=== PATIENT | male | born 1955 | race Caucasian/White ===

== ENCOUNTER 2018-07-09 08:48 | Day surgery (SDC) | payer OTHER ==
[~2018-07-09] VITALS: Ht 172.7 cm; Wt 90.7 kg
[2018-07-09] MEDS ORDERED: fentaNYL 0.05 MG/ML VIAL ONE (11:26)
[2018-07-09] MEDS ORDERED: LIDOCAINE 2% 100 MG/5 ML UJET TP ONE (11:27)
[2018-07-09] MEDS ORDERED: MIDAZOLAM 2 MG/2 ML VIAL ONE (11:27)
[2018-07-09] MEDS ORDERED: fentaNYL 0.05 MG/ML VIAL IVP ONE (12:45)
== END 2018-07-09 12:03 | disposition home or self-care (01) ==
LOC: MDS 08:48 → MMU 08:48 → MDS 12:03
PROVIDERS: ATTEND Internal Medicine Gastroenterology
DX: Z12.11 Encounter for screening for malignant neoplasm of colon (principal); D12.0 Benign neoplasm of cecum; K57.30 Diverticulosis of large intestine without perforation or abscess without bleeding; F41.9 Anxiety disorder, unspecified; F32.9 Major depressive disorder, single episode, unspecified; I10 Essential (primary) hypertension; E03.9 Hypothyroidism, unspecified; F17.210 Nicotine dependence, cigarettes, uncomplicated; E78.00 Pure hypercholesterolemia, unspecified; Z72.89 Other problems related to lifestyle; Z79.82 Long term (current) use of aspirin; Z79.899 Other long term (current) drug therapy; Z98.890 Other specified postprocedural states
CPT/HCPCS: 45385; J3010; J2250